=== PATIENT | male | born 1985 | race Caucasian/White ===

== ENCOUNTER 2020-03-10 13:58 | Emergency (ER) | payer MEDICAID ==
[~2020-03-10] VITALS: Ht 193 cm; Wt 98.7 kg
--- NOTE | 2020-03-10 14:20 | NUR ---
pt here for help with detoxing from alcohol. list of resourses given to pt for help with etoh abuse.
[2020-03-10] MEDS ORDERED: LORazepam 1MG TABLET PO ONE (15:00)
[2020-03-10] MEDS ORDERED: THIAMINE 100 MG/ML, 2ML IM ONE (15:00)
[2020-03-10] MEDS ORDERED: THIAMINE 100 MG/ML, 2ML ONE (15:02)
[2020-03-10] MEDS ORDERED: LORazepam 1MG TABLET ONE (15:03)
[2020-03-10 15:51] VITALS: BP 143/97
== END 2020-03-10 16:33 | disposition home or self-care (01) ==
LOC: ED 16:00
DX: L03.111 Cellulitis of right axilla (principal); F10.229 Alcohol dependence with intoxication, unspecified; R00.2 Palpitations; F41.1 Generalized anxiety disorder; Y90.0 Blood alcohol level of less than 20 mg/100 ml
CPT/HCPCS: 10060; 96372; 99283; J3411

== ENCOUNTER 2020-03-13 08:10 | Emergency (ER) | payer MEDICARE, MEDICAID ==
[~2020-03-13] VITALS: Ht 193 cm; Wt 106.0 kg
[2020-03-13 08:11] VITALS: BP 147/85
[2020-03-13] MEDS ORDERED: LIDOCAINE-MPF 1%, 5ML ONE ×2 (08:43→08:59)
--- NOTE | 2020-03-13 08:54 | NUR ---
PLAN FOR I/D REPORT FROM KERA BRYANT.
[2020-03-13] MEDS ORDERED: LIDOCAINE-MPF 1%, 5ML INFIL ONE (09:00)
--- NOTE | 2020-03-13 09:01 | NUR ---
report given to francisco morton.
== END 2020-03-13 09:31 | disposition home or self-care (01) ==
LOC: ED 08:21
DX: L02.411 Cutaneous abscess of right axilla (principal)
CPT/HCPCS: 10060; 99284

== ENCOUNTER 2020-03-16 09:00 | Emergency (ER) | payer MEDICARE, MEDICAID ==
[~2020-03-16] VITALS: Ht 193 cm; Wt 100.3 kg
[2020-03-16 09:03] VITALS: BP 149/94
--- NOTE | 2020-03-16 09:43 | NUR ---
4X4 GAUZE SOAKED WITH HYDROGEN PEROXIDE PLACED ON WOUND UNDER RIGHT ARM. PT LEAVING UNDER THE ARM TO SOFTEN WOUND FOR CLEANING
== END 2020-03-16 10:24 | disposition home or self-care (01) ==
LOC: ED 09:15
DX: L02.411 Cutaneous abscess of right axilla (principal)
CPT/HCPCS: 99283

== ENCOUNTER 2020-09-03 14:03 | Emergency (ER) | payer MEDICARE, MEDICAID ==
[~2020-09-03] VITALS: Ht 193 cm; Wt 102.8 kg
[2020-09-03 14:49] LABS: BASOPHILS % (AUTO) 1 % (0-1); EOSINOPHILS % (AUTO) 1 % (1-7); LYMPHOCYTES % (AUTO) 27 % (22-44); MEAN CORPUSCULAR HEMOGLOBIN 31.4 pg (27.5-34.5); MEAN CORPUSCULAR HGB CONC 34.6 g/dL (33.2-36.2); MEAN PLATELET VOLUME 8.8 fL (7.4-10.4); MONOCYTES % (AUTO) 8 % (2-9); NEUTROPHILS % (AUTO) 64 % (42-75); PLATELET COUNT 228 x10^3/uL (130-400); RED CELL DISTRIBUTION WIDTH 12.8 % (9.4-14.8)
[2020-09-03 14:54] LABS: MD NO
[2020-09-03 15:00] LABS: ALANINE AMINOTRANSFERASE 26 U/L (12-78); ALBUMIN 3.8 g/dL (3.4-5.0); ANION GAP 5 mmol/L (5-15); CALCIUM 9.3 mg/dL (8.5-10.1); CHLORIDE 106 mmol/L (98-107); CREATININE 0.99 mg/dL (0.7-1.3)
[2020-09-03 15:09] LABS: ALKALINE PHOSPHATASE 73 U/L (45-117); BILIRUBIN,TOTAL 0.7 mg/dL (0.2-1.0); TOTAL PROTEIN 7.2 g/dL (6.4-8.2)
--- NOTE | 2020-09-03 15:47 | NUR ---
PA AGREED TO WAIT UNTIL PT HAS ROOM ASSIGNED FOR PORTABLE US SINCE PT HAS COVID-19 SYMPTOMS W/ PENDING COVID-19 TEST - US DELAY
--- NOTE | 2020-09-03 16:44 | NUR ---
MIX CHEMIST: PT TO ROOM FROM AMEYA MCGUIRE
--- NOTE | 2020-09-03 17:50 | NUR ---
ALL RESULTS ARE BACK AT THIS TIME. CHART UP FOR RECHECK.
[2020-09-03 17:51] VITALS: BP 132/83
[2020-09-03] MEDS ORDERED: SULFAMETH./TRIMETHOPRIM DS 800MG/160MG TABLET ONE ×2 (18:56→19:12)
[2020-09-03] MEDS ORDERED: CEFAZOLIN 1,000 MG ONE ×2 (18:57→19:12)
[2020-09-03] MEDS ORDERED: SULFAMETH./TRIMETHOPRIM DS 800MG/160MG TABLET PO ONE (19:30)
[2020-09-03] MEDS ORDERED: CEFAZOLIN 1,000 MG IM ONE (19:30)
== END 2020-09-03 19:16 | disposition home or self-care (01) ==
LOC: ED 14:43
DX: L03.114 Cellulitis of left upper limb (principal)
CPT/HCPCS: 36415; 71045; 80053; 85025; 93971; 96372; 99285; J0690